=== PATIENT | female | born 1980 | race American Indian/Alaskan Native ===

== ENCOUNTER 2019-02-02 09:28 | Outpatient (CLI) | payer MEDICARE ==
[2019-02-02 10:10] LABS: Blood Urea Nitrogen 9 mg/dL (7-17)
--- NOTE | 2019-02-02 18:29 | Magnetic Resonance Report ---
PROCEDURE: MR PELVIS WO/W CON HISTORY: PELVIC PAIN, Fibroids, heavy bleeding and bloating. FINDINGS: MRI of the pelvis was performed using axial T2, axial T1, sagittal T2, axial and sagittal f at-saturated T1-weighted gradient echo images, and axial sagittal and coronal postcontrast T1-weighte d gradient echo images obtained following the intravenous administration of gadolinium-based contrast . The uterus overall measures 7.9 x 8.0 x 10.7 cm. There is a right anterior uterine body intramural an d submucosal leiomyoma, 6.1 x 6.2 x 6.4 cm. Following administration of intravenous contrast, this le iomyoma enhances avidly in the arterial phase relative to the remainder of the uterine myometrium, in dicating that has preferential arterial flow. In a more delayed postcontrast phase the leiomyoma enha nces to a degree similar to the remainder of the uterus. Immediately superior to this submucosal leiomyoma is a anterior uterine fundal intramural leiomyoma, sagittal T2-weighted image 16, axial T2-weighted image 17, approximately 0.8 cm. There is a dorsal uterine body leiomyoma, axial T2-weighted image 16, sagittal T2-weighted image 17, 1.9 x 1.3 x 1.8 cm. No other leiomyomas are seen. The endometrial stripe is mildly thickened at 1.5 cm. The cervix is within normal limits. Both ovaries are identified and contain normal small follicles. There is no adnexal mass. The urinary bladder is within normal limits. Urethra is within normal limits. IMPRESSION: Right anterior uterine body submucosal leiomyoma Normal ovaries This document is electronically signed by Barrera Botello MD., Feb 02 2019 06:27:03 PM ET
== END 2019-02-02 09:29 | disposition home or self-care (01) ==
LOC: MRI 09:28
PROVIDERS: ATTEND Radiology Vascular & Interventional Radiology
DX: D25.0 Submucous leiomyoma of uterus (principal); N93.9 Abnormal uterine and vaginal bleeding, unspecified; I10 Essential (primary) hypertension
CPT/HCPCS: 36415; 72197; 82565; 84520; A9577

== ENCOUNTER 2021-07-08 21:54 | Inpatient (IN) | payer MEDICARE ==
[2021-07-09] MEDS ORDERED: fentaNYL 100 MCG/2 ML INJ IV ONE (00:55)
[2021-07-09] MEDS ORDERED: NITROGLYCERIN 2% OINT 1 GM TP ONE (00:55)
[2021-07-09] MEDS ORDERED: ONDANSETRON 4 MG/2 ML INJ IV ONE (00:55)
[2021-07-09] MEDS ORDERED: ASPIRIN 325 MG TAB PO ONE (00:55)
--- NOTE | 2021-07-09 01:09 | Emergency Department Report ---
HPI - General Chief Complaint: Psych Time Seen by Provider: 07/09/21 00:39 - HPI HPI: Room 21 The patient is a 41-year-old female present with a chief complaint of chest pain. The patient states this evening while at rest she developed substernal chest pain feeling as though someone was standing on her chest. The patient states "I thought I was having a heart attack." Patient states the pain is been intermittent and associated with shortness of breath, diaphoresis and nausea without vomiting. The patient gets her chest pain score 3/10. The patient also exhibits delusions stating that "everything has been hacked into" and she states she feels "like I am being watched in the house." The patient states "cyber hacking going on in the house. "The patient also admits to suicidal ideation for 1 day and states her only attempt at harming herself was to put herself in a choke hold. Patient states she's never had a cardiac catheterization ED Past Medical Hx - Past Medical History Hx Hypertension: Yes Hx Diabetes: Yes (borderline- on Metformin) Hx Psychiatric Treatment: Yes (Anxiety) Additional medical history: fibroid - Surgical History Additional Surgical History: Myomectomy - Family History Family history: no significant - Social History Smoking Status: Never Smoker Substance Use Type: None (Denies illicit drug use), Alcohol (Occasional) - Medications Home Medications: Home Medications Medication Instructions Recorded Confirmed Last Taken Type Lisinopril [Zestril] 40 mg PO DAILY #30 tablet 08/08/18 Unknown Rx ED Review of Systems ROS: Stated complaint: CHEST PAIN Other details as noted in HPI Constitutional: diaphoresis Eyes: denies: eye pain ENT: denies: throat pain Respiratory: shortness of breath Cardiovascular: chest pain Endocrine: no symptoms reported Gastrointestinal: nausea. denies: vomiting Genitourinary: denies: dysuria Musculoskeletal: denies: back pain Neurological: denies: headache Physical Exam - Physical Exam Vital Signs: Vital Signs 07/08/21 23:35 Temperature 98.7 F Pulse Rate 104 H Respiratory 18 Rate Blood Pressure 126/86 [Left] O2 Sat by Pulse 98 Oximetry Physical Exam: GENERAL: The patient is well-developed well-nourished female lying on stretcher not appearing to be in acute distress. [] HEENT: Normocephalic. Atraumatic. Extraocular motions are intact. Patient has moist mucous membranes. NECK: Supple. Trachea midline CHEST/LUNGS: Clear to auscultation. There is no respiratory distress noted. HEART/CARDIOVASCULAR: Regular. There is no tachycardia. There is no gallop rub or murmur. ABDOMEN: Abdomen is soft, nontender. Patient has normal bowel sounds. There is no abdominal distention. SKIN: There is no rash. There is no edema. There is no diaphoresis. NEURO: The patient is awake, alert, and oriented. The patient is cooperative. The patient has no focal neurologic deficits. The patient has normal speech MUSCULOSKELETAL: There is no evidence of acute injury. ED Course Vital Signs 07/08/21 23:35 Temperature 98.7 F Pulse Rate 104 H Respiratory 18 Rate Blood Pressure 126/86 [Left] O2 Sat by Pulse 98 Oximetry ED Medical Decision Making - Lab Data Result diagrams: 07/09/21 01:22 07/09/21 01:22 Laboratory Tests 07/09/21 07/09/21 07/09/21 01:07 01:07 01:22 WBC 12.0 H RBC 4.56 Hgb 12.9 Hct 39.2 MCV 86 MCH 28 MCHC 33 RDW 14.3 Plt Count 369 Lymph % (Auto) 25.4 Mccreary % (Auto) 4.7 Eos % (Auto) 1.2 Baso % (Auto) 0.7 Lymph # (Auto) 3.0 Mccreary # (Auto) 0.6 Eos # (Auto) 0.1 Baso # (Auto) 0.1 Seg Neutrophils % 68.0 Seg Neutrophils # 8.2 H Sodium Potassium Chloride Carbon Dioxide Anion Gap BUN Creatinine Estimated GFR BUN/Creatinine Ratio Glucose Calcium Total Creatine Kinase CK-MB (CK-2) CK-MB (CK-2) Rel Index Troponin T HCG, Qual Urine Color Straw Urine Turbidity Clear Urine pH 6.0 Ur Specific [place] 1.008 Urine Protein <15 mg/dl Urine Glucose (UA) Neg Urine Ketones Neg Urine Blood Sm Urine Nitrite Neg Urine Bilirubin Neg Urine Urobilinogen < 2.0 Ur Leukocyte Esterase Neg Urine WBC (Auto) < 1.0 Urine RBC (Auto) 2.0 U Epithel Cells (Auto) 2.0 Salicylates Urine Opiates Screen Presumptive negative Urine Methadone Screen Presumptive negative Acetaminophen Ur Barbiturates Screen Presumptive negative Ur Phencyclidine Scrn Presumptive negative Ur Amphetamines Screen Presumptive negative U Benzodiazepines Scrn Presumptive negative Urine Cocaine Screen Presumptive negative U Marijuana (THC) Screen Presumptive negative Drugs of Abuse Note Disclamer Plasma/Serum Alcohol 07/09/21 07/09/21 07/09/21 01:22 01:22 01:22 WBC RBC Hgb Hct MCV MCH MCHC RDW Plt Count Lymph % (Auto) [place]re[place] % (Auto) Eos % (Auto) Baso % (Auto) Lymph # (Auto) Mccreary # (Auto) Eos # (Auto) Baso # (Auto) Seg Neutrophils % Seg Neutrophils # Sodium 138 Potassium 3.3 L Chloride 98.2 Carbon Dioxide 26 Anion Gap 17 BUN 8 Creatinine 0.9 Estimated GFR > 60 BUN/Creatinine Ratio 9 Glucose 99 Calcium 9.3 Total Creatine Kinase 529 H CK-MB (CK-2) 2.7 CK-MB (CK-2) Rel Index 0.5 Troponin T < 0.010 HCG, Qual Urine Color Urine Turbidity Urine pH Ur Specific [place] Urine Protein Urine Glucose (UA) Urine Ketones Urine Blood Urine Nitrite Urine Bilirubin Urine Urobilinogen Ur Leukocyte Esterase Urine WBC (Auto) Urine RBC (Auto) U Epithel Cells (Auto) Salicylates 1.5 L Urine Opiates Screen Urine Methadone Screen Acetaminophen 5.0 L Ur Barbiturates Screen Ur Phencyclidine Scrn Ur Amphetamines Screen U Benzodiazepines Scrn Urine Cocaine Screen U Marijuana (THC) Screen Drugs of Abuse Note Plasma/Serum Alcohol 07/09/21 07/09/21 01:22 01:22 WBC RBC Hgb Hct MCV MCH MCHC RDW Plt Count Lymph % (Auto) [place] % (Auto) Eos % (Auto) Baso % (Auto) Lymph # (Auto) [place] # (Auto) Eos # (Auto) Baso # (Auto) Seg Neutrophils % Seg Neutrophils # Sodium Potassium Chloride Carbon Dioxide Anion Gap BUN Creatinine Estimated GFR BUN/Creatinine Ratio Glucose Calcium Total Creatine Kinase CK-MB (CK-2) CK-MB (CK-2) Rel Index Troponin T HCG, Qual Negative Urine Color Urine Turbidity Urine pH Ur Specific [place] Urine Protein Urine Glucose (UA) Urine Ketones Urine Blood Urine Nitrite Urine Bilirubin Urine Urobilinogen Ur Leukocyte Esterase Urine WBC (Auto) Urine RBC (Auto) U Epithel Cells (Auto) Salicylates Urine Opiates Screen Urine Methadone Screen Acetaminophen Ur Barbiturates Screen Ur Phencyclidine Scrn Ur Amphetamines Screen U Benzodiazepines Scrn Urine Cocaine Screen U Marijuana (THC) Screen Drugs of Abuse Note Plasma/Serum Alcohol < 0.01 - EKG Data -: EKG Interpreted by Me EKG shows normal: sinus rhythm Rate: normal - Radiology Data Radiology results: report reviewed (Chest x-ray), image reviewed (Chest x-ray) interpreted by me: Chest x-ray-no definite focal infiltrates, no pneumothorax [facility] [address] [place] [address] XRay Report Signed Patient: ERIC RANGEL MR#: [id number] : 1980 Acct:[id number] Age/Sex: 41 / F ADM Date: 07/08/21 Loc: ED Attending Dr: Ordering Physician: TEENA LIRIANO MD Date of Service: 07/09/21 Procedure(s): XR chest 1V ap Accession Number(s): [id number] cc: TEENA LIRIANO MD Fluoro Time In Minutes: CHEST 1 VIEW 07/09/2021 1:08 AM INDICATION / CLINICAL INFORMATION: chest pain. COMPARISON: None available. FINDINGS: SUPPORT DEVICES: None. HEART / MEDIASTINUM: No significant abnormality. LUNGS / PLEURA: No significant pulmonary or pleural abnormality. No pneumothorax. ADDITIONAL FINDINGS: No significant additional findings. IMPRESSION: 1. No acute findings. Signer Name: Jorge Rosas MD Signed: 07/09/2021 2:28 AM Workstation Name: [id number] Transcribed By: TL Dictated By: Jorge Rosas MD Electronically Authenticated By: Jorge Rosas MD Signed Date/Time: 07/09/21227 DD/ 7 TD/TT: Print Cancel - Differential Diagnosis ACS, pericarditis, GERD, psychosis, Critical care attestation.: If time is entered above; I have spent that time in minutes in the direct care of this critically ill patient, excluding procedure time. ED Disposition Clinical Impression: Chest pain, Suicidal ideation, Delusional disorder Disposition: ADMITTED INPATIENT Is pt being admited?: Yes Does the pt Need Aspirin: Yes Condition: Fair Time of Disposition: 02:49 (Hospitalist called (Dr Edward)) Heart Score - HEART Score History: Moderately suspicious EKG: Non-specific Age: < 45 Risk factors: > 3 risk factors or hx of atherosclerotic disease Troponin: < normal limit HEART Score: 4 - EKG Read Time Time EKG Completed: 02:29 EKG Read Time: 02:46
[2021-07-09 01:21] LABS: Bilirubin,Urine NEG (Negative); Blood,Urine SM (Negative); Color,Urine Straw (Yellow); Protein,Urine <15 mg/dL mg/dL (Negative); Urobilinogen,Urine < 2.0 mg/dL (<2.0)
[2021-07-09 01:27] LABS: WBC,Urine < 1.0 /HPF (0.0-6.0)
[2021-07-09 01:29] LABS: Amphetamine Screen,Urine PRESUMPTIVE NEGATIVE; Benzodiazepines Screen,Urine PRESUMPTIVE NEGATIVE; Cannabinoid Screen,Urine PRESUMPTIVE NEGATIVE; Cocaine Screen,Urine PRESUMPTIVE NEGATIVE; Methadone Screen,Urine PRESUMPTIVE NEGATIVE; Opiate Screen,Urine PRESUMPTIVE NEGATIVE
[2021-07-09 01:48] LABS: Basophils # (Auto) 0.1 K/mm3 (0.0-0.1); Basophils % (Auto) 0.7 % (0.0-1.8); Eosinophils # (Auto) 0.1 K/mm3 (0.0-0.4); Eosinophils % (Auto) 1.2 % (0.0-4.3); Hematocrit 39.2 % (30.3-42.9); Hemoglobin 12.9 gm/dl (10.1-14.3); Lymphocytes % (Auto) 25.4 % (13.4-35.0); Mean Corpuscular HGB Conc 33 % (30-34); Mean Corpuscular Volume 86 fl (79-97); Monocytes # (Auto) 0.6 K/mm3 (0.0-0.8); Monocytes % (Auto) 4.7 % (0.0-7.3); Platelet Count 369 K/mm3 (140-440); Red Blood Count 4.56 M/mm3 (3.65-5.03); Red Cell Distribution Width 14.3 % (13.2-15.2)
[2021-07-09 01:59] LABS: Creatine Kinase MB 2.7 ng/mL (0.0-4.0)
[2021-07-09 02:00] LABS: BUN/Creatinine Ratio 9; Blood Urea Nitrogen 8 mg/dL (7-17); Calcium 9.3 mg/dL (8.4-10.2); Hemolysis Index 3
[2021-07-09] MEDS ORDERED: ONDANSETRON 4 MG/2 ML INJ IV PRN (02:14)
[2021-07-09] MEDS ORDERED: MORPHINE 2 MG/1 ML INJ IV PRN (02:14)
[2021-07-09] MEDS ORDERED: ACETAMINOPHEN 325 MG TAB PO PRN ×2 (02:14)
[2021-07-09] MEDS ORDERED: MAGNESIUM HYDROXIDE (MOM) ORAL LIQD UDC PO PRN (02:14)
[2021-07-09] MEDS ORDERED: NITROGLYCERIN 0.4 MG TAB SUBL SL PRN (02:14)
[2021-07-09] MEDS ORDERED: traMADol 50 MG TAB PO PRN (02:14)
[2021-07-09] MEDS ORDERED: MORPHINE 4 MG/1 ML INJ IV PRN ×2 (02:14)
[2021-07-09] MEDS ORDERED: POTASSIUM CHLORIDE ER 20 MEQ TAB PO ONE (02:15)
--- NOTE | 2021-07-09 02:32 | XRay Report ---
CHEST 1 VIEW 07/09/2021 1:08 AM INDICATION / CLINICAL INFORMATION: chest pain. COMPARISON: None available. FINDINGS: SUPPORT DEVICES: None. HEART / MEDIASTINUM: No significant abnormality. LUNGS / PLEURA: No significant pulmonary or pleural abnormality. No pneumothorax. ADDITIONAL FINDINGS: No significant additional findings. IMPRESSION: 1. No acute findings. Signer Name: Jorge Rosas MD Signed: 07/09/2021 2:28 AM Workstation Name: [id number]
--- NOTE | 2021-07-09 02:38 | History and Physical Report ---
History of Present Illness Date of examination: 07/09/21 Date of admission: 07/09/2021 Chief complaint: Chest Pain History of present illness: 41-year-old female with significant history of hypertension and diabetes mellitus presenting in the emergency room today complaining of chest pain. Chest pain is said to be substernal and felt like pressure. It has been in termittent and has been associated with shortness of breath, nausea and some diaphoresis. On a scale of 10 pain was about 3-4 over 10 in severity. Patient has a known history of mental illness and currently in the emergency room for medical clearance. She has been experiencing delusional ideas and feels that is because she is being watched in her house. She had expressed suicidal ideation about 24 hours ago. Patient denies any fever or chills, no recent travel and no sick contacts. Work-up in the emergency room today, labs, chest x-ray and EKG has been unremarkable. Past History Past Medical History: diabetes, hypertension, other (Anxiety) Past Surgical History: Other (Myomectomy) Social history: alcohol abuse (Occasional Alcohol) Family history: no significant family history Medications and Allergies Allergies Allergy/AdvReac Type Severity Reaction Status Date / Time No Known Allergies Allergy Verified 07/08/21 23:39 Home Medications Medication Instructions Recorded Confirmed Last Taken Type Lisinopril [Zestril] 40 mg PO DAILY #30 tablet 08/08/18 Unknown Rx Active Meds: Active Medications Acetaminophen (Acetaminophen 325 Mg Tab) 650 mg PO Q4H PRN PRN Reason: Pain MILD(1-3)/Fever >100.5/REZA Aspirin (Aspirin Ec 325 Mg Tab) 325 mg PO QDAY CLAUDINE Sodium Chloride (Nacl 0.9% 1000 Ml) 1,000 mls @ 75 mls/hr IV DIRECT CLAUDINE Magnesium Hydroxide (Magnesium Hydroxide (Mom) Oral Liqd Udc) 30 ml PO Q4H PRN PRN Reason: Constipation Morphine Sulfate (Morphine 2 Mg/1 Ml Inj) 2 mg IV Q4H PRN PRN Reason: Pain, Moderate (4-6) Morphine Sulfate (Morphine 4 Mg/1 Ml Inj) 4 mg IV Q4H PRN PRN Reason: Pain , Severe (7-10) Morphine Sulfate (Morphine 4 Mg/1 Ml Inj) 2 mg IV Q5MIN PRN PRN Reason: Chest Pain unrelieved by NTG Nitroglycerin (Nitroglycerin 0.4 Mg Tab Subl) 0.4 mg SL Q5M PRN PRN Reason: Chest Pain Ondansetron HCl (Ondansetron 4 Mg/2 Ml Inj) 4 mg IV Q8H PRN PRN Reason: Nausea And Vomiting Sodium Chloride (Sodium Chloride 0.9% 10 Ml Flush Syringe) 10 ml IV BID CLAUDINE Sodium Chloride (Sodium Chloride 0.9% 10 Ml Flush Syringe) 10 ml IV PRN PRN PRN Reason: LINE FLUSH Tramadol HCl (Tramadol 50 Mg Tab) 50 mg PO Q6H PRN PRN Reason: Pain, Moderate (4-6) Review of Systems Constitutional: no fever, no chills Ears, nose, mouth and throat: no nasal congestion, no sore throat Cardiovascular: chest pain, no palpitations Respiratory: no cough, no shortness of breath Genitourinary Female: no pelvic pain, no flank pain, no dysuria, no urgency, no hematuria Musculoskeletal: no neck pain, no low back pain Integumentary: no rash, no pruritis Neurological: no headaches, no confusion Psychiatric: no anxiety, no depression Endocrine: no polydipsia, no polyuria, no nocturia Exam - Constitutional Vitals: Temp Pulse Resp BP Pulse Ox 98.7 F 104 H 18 126/86 98 07/08/21 23:35 07/08/21 23:35 07/08/21 23:35 07/08/21 23:35 07/08/21 23:35 General appearance: Present: no acute distress, well-nourished - EENT Eyes: Present: PERRL, EOM intact. Absent: scleral icterus ENT: hearing intact, clear oral mucosa, dentition normal - Neck Neck: Present: supple, normal ROM - Respiratory Respiratory effort: normal Respiratory: bilateral: CTA - Cardiovascular Rhythm: regular Heart Sounds: Present: S1 & S2. Absent: systolic murmur, diastolic murmur - Extremities Extremities: no ischemia, pulses intact, pulses symmetrical, No edema, normal temperature, normal color, Full ROM Peripheral Pulses: within normal limits - Abdominal General gastrointestinal: Present: soft, non-tender, non-distended, normal bowel sounds. Absent: mass - Integumentary Integumentary: Present: clear, warm, dry. Absent: rash - Musculoskeletal Musculoskeletal: strength equal bilaterally - Psychiatric Psychiatric: appropriate mood/affect, intact judgment & insight, memory intact, cooperative - Neurologic Neurologic: CNII-XII intact, no focal deficits, moves all extremities HEART Score - HEART Score History: Moderately suspicious EKG: Non-specific Age: < 45 Risk factors: 1-2 risk factors Troponin: Troponin T < 0.010 ng/mL (0.00-0.029) 07/09/21 01:22 Troponin: < normal limit HEART Score: 3 Results - Labs CBC & Chem 7: 07/09/21 05:45 07/09/21 01:22 Labs: Abnormal lab results 07/09/21 07/09/21 07/09/21 Range/Units 01:22 01:22 01:22 WBC 12.0 H (4.5-11.0) K/mm3 Seg Neutrophils # 8.2 H (1.8-7.7) K/mm3 Potassium 3.3 L (3.6-5.0) mmol/L Total Creatine Kinase 529 H (30-135) units/L Salicylates 1.5 L (2.8-20.0) mg/dL Acetaminophen (10.0-30.0) ug/mL 07/09/21 Range/Units 01:22 WBC (4.5-11.0) K/mm3 Seg Neutrophils # (1.8-7.7) K/mm3 Potassium (3.6-5.0) mmol/L Total Creatine Kinase (30-135) units/L Salicylates (2.8-20.0) mg/dL Acetaminophen 5.0 L (10.0-30.0) ug/mL Assessment and Plan - Patient Problems (1) Chest pain Current Visit: Yes Status: Acute Plan to address problem: Patient admitted and placed on telemetry. We will check serial cardiac enzymes. Patient commenced on daily aspirin, sublingual nitroglycerin and IV morphine as needed for chest pain. (2) Delusional disorder Current Visit: Yes Status: Acute Plan to address problem: Consult placed to mental health for evaluation. (3) DVT prophylaxis Current Visit: Yes Status: Acute Plan to address problem: Patient placed on subcutaneous heparin. (4) Full code status Current Visit: Yes Status: Acute Plan to address problem: Patient is full code.
[2021-07-09 06:14] LABS: Red Blood Count 4.49 M/mm3 (3.65-5.03)
[2021-07-09 06:15] LABS: Basophils % (Auto) 0.5 % (0.0-1.8); Eosinophils # (Auto) 0.2 K/mm3 (0.0-0.4); Eosinophils % (Auto) 1.6 % (0.0-4.3); Hematocrit 38.5 % (30.3-42.9); Hemoglobin 13.1 gm/dl (10.1-14.3); Lymphocytes # (Auto) 2.7 K/mm3 (1.2-5.4); Lymphocytes % (Auto) 27.9 % (13.4-35.0); Mean Corpuscular HGB Conc 34 % (30-34); Mean Corpuscular Volume 86 fl (79-97); Monocytes # (Auto) 0.6 K/mm3 (0.0-0.8); Monocytes % (Auto) 5.7 % (0.0-7.3); Platelet Count 349 K/mm3 (140-440); Red Cell Distribution Width 14.4 % (13.2-15.2)
[2021-07-09 06:46] LABS: BUN/Creatinine Ratio 10; Blood Urea Nitrogen 8 mg/dL (7-17); Calcium 9.4 mg/dL (8.4-10.2); Hemolysis Index 1
[2021-07-09] MEDS ORDERED: REGADENOSON 0.4 MG/5 ML INJ IV ONE (07:58)
--- NOTE | 2021-07-09 09:09 | Consultation ---
History of Present Illness - Reason for Consult Consult date: 07/09/21 Reason for consult: delusional - Chief Complaint Chief complaint: Chest Pain - History of Present Psychiatric Illness The patient was seen today. She says she came to the ER for chest pain and anxiety. The patient denies a history of psych disorders or being on any medications. The patient is acutely psychotic. She says her family is being attached because they were cyber hacked. She says "I need someone to come and monitor the vazquez." The patient says she is seeing laser beams flashing and people walking and talking inside her home. She says "my whole family is in trouble." When asking the patient about suicidal thoughts, she replies "a little but not like I was last night." PAST PSYCHIATRIC HISTORY Diagnoses: Anxiety Suicide attempts or Self-harm behavior: Denies Prior psychiatric hospitalizations: Yes Substance Abuse history: Denies Previous psychiatric Denies Outpatient treatment: Denies PAST MEDICAL HISTORY: None reported Family Psychiatric History: None reported or documented SOCIAL HISTORY Marital Status: Single Living Arrangements: with family Employment Status: Unemployed Access to guns/weapons: Denies Education: History of Abuse: Denies Legal History: Denies REVIEW OF SYSTEMS Constitutional: Negative for weight loss ENT: Negative for stridor Respiratory: Negative for cough or hemoptysis All other systems reviewed and are negative MENTAL STATUS EXAMINATION General Appearance and Behavior: Age appropriate, good hygiene, wearing appropriate clothes, good eye contact, calm and cooperative Cooperation: Participating/engaged Psychomotor Behavior: Psychomotor normal Mood: okay Affect and affective range: Congruent to stated mood Thought Process: circumstantial, nonsensical Thought Content: delusions, hallucinations Speech: normal tone and pace Suicidal Ideation: Yes Homicidal Ideation: Denies Hallucinations: Yes Delusions: yes Impulse Control: Limited Insight and Judgment: Limited Memory: Limited Attention: divided Orientation: Alert and oriented Assessment and Plan (1) Delusional Disorder Treatment Plan 1013 Zoloft 25mg po daily Olanzapine 5mg po daily Vistaril 25mg po BID Sitter: per primary Medical: per primary Disposition: Recommend acute psychiatric inpatient treatment will follow. Thanks Case staffed with Dr. Tariq Medications and Allergies Allergies Allergy/AdvReac Type Severity Reaction Status Date / Time No Known Allergies Allergy Verified 07/08/21 23:39 Home Medications Medication Instructions Recorded Confirmed Last Taken Type Lisinopril [Zestril] 40 mg PO DAILY #30 tablet 08/08/18 07/09/21 07/08/21 Rx Glimepiride [Amaryl] 4 mg PO QAM 07/09/21 07/09/21 07/08/21 History hydroCHLOROthiazide [HCTZ] 25 mg PO QAM 07/09/21 07/09/21 07/08/21 History metFORMIN [Glucophage] 500 mg PO BID 07/09/21 07/09/21 07/08/21 History Active Meds: Active Medications Acetaminophen (Acetaminophen 325 Mg Tab) 650 mg PO Q4H PRN PRN Reason: Pain MILD(1-3)/Fever >100.5/REZA Aspirin (Aspirin Ec 325 Mg Tab) 325 mg PO QDAY CLAUDINE Sodium Chloride (Nacl 0.9% 1000 Ml) 1,000 mls @ 75 mls/hr IV DIRECT CLAUDINE Magnesium Hydroxide (Magnesium Hydroxide (Mom) Oral Liqd Udc) 30 ml PO Q4H PRN PRN Reason: Constipation Morphine Sulfate (Morphine 2 Mg/1 Ml Inj) 2 mg IV Q4H PRN PRN Reason: Pain, Moderate (4-6) Morphine Sulfate (Morphine 4 Mg/1 Ml Inj) 4 mg IV Q4H PRN PRN Reason: Pain , Severe (7-10) Morphine Sulfate (Morphine 4 Mg/1 Ml Inj) 2 mg IV Q5MIN PRN PRN Reason: Chest Pain unrelieved by NTG Nitroglycerin (Nitroglycerin 0.4 Mg Tab Subl) 0.4 mg SL Q5M PRN PRN Reason: Chest Pain Ondansetron HCl (Ondansetron 4 Mg/2 Ml Inj) 4 mg IV Q8H PRN PRN Reason: Nausea And Vomiting Sodium Chloride (Sodium Chloride 0.9% 10 Ml Flush Syringe) 10 ml IV BID CLAUDINE Sodium Chloride (Sodium Chloride 0.9% 10 Ml Flush Syringe) 10 ml IV PRN PRN PRN Reason: LINE FLUSH Tramadol HCl (Tramadol 50 Mg Tab) 50 mg PO Q6H PRN PRN Reason: Pain, Moderate (4-6) Mental Status Exam - Vital signs Last Vital Signs Temp 98.7 F 07/08/21 23:35 Pulse 92 H 07/09/21 06:43 Resp 16 07/09/21 06:43 BP 118/77 07/09/21 06:43 Pulse Ox 98 07/09/21 06:43 Results Result Diagrams: 07/09/21 05:45 07/09/21 05:45 Abnormal lab results 07/09/21 07/09/21 07/09/21 Range/Units 01:22 01:22 01:22 WBC 12.0 H (4.5-11.0) K/mm3 Seg Neutrophils # 8.2 H (1.8-7.7) K/mm3 Sodium (137-145) mmol/L Potassium 3.3 L (3.6-5.0) mmol/L Chloride (98-107) mmol/L Glucose (65-100) mg/dL Total Creatine Kinase 529 H (30-135) units/L Salicylates 1.5 L (2.8-20.0) mg/dL Acetaminophen (10.0-30.0) ug/mL 07/09/21 07/09/21 Range/Units 01:22 05:45 WBC (4.5-11.0) K/mm3 Seg Neutrophils # (1.8-7.7) K/mm3 Sodium 135 L (137-145) mmol/L Potassium (3.6-5.0) mmol/L Chloride 93.2 L (98-107) mmol/L Glucose 116 H (65-100) mg/dL Total Creatine Kinase (30-135) units/L Salicylates (2.8-20.0) mg/dL Acetaminophen 5.0 L (10.0-30.0) ug/mL All other labs normal.
--- NOTE | 2021-07-09 12:14 | Consultation ---
History of Present Illness Consult date: 07/09/21 Consult reason: chest pain History of present illness: This is a 41-year old F with a history of hypertension and diabetes, admitted with suicidal ideation and underlying psychosis. A cardiac consultation has been requested for chest pain evaluation. Chest pain is poorly characterized, intermittent, and is reproducible with palpation. Denies unusual shortness of breath and denies palpitations. No prior cardiac history. A chest x-ray showed n o acute findings and lab done shows normal troponin measurements. 12-lead ECG is sinus rhythm, no acute ST or T wave changes. Past History Past Medical History: diabetes, hypertension, other (Anxiety) Past Surgical History: Other (Myomectomy) Social history: alcohol abuse (Occasional Alcohol) Family history: no significant family history Medications and Allergies Allergies Allergy/AdvReac Type Severity Reaction Status Date / Time No Known Allergies Allergy Verified 07/08/21 23:39 Home Medications Medication Instructions Recorded Confirmed Last Taken Type Lisinopril [Zestril] 40 mg PO DAILY #30 tablet 08/08/18 07/09/21 07/08/21 Rx Glimepiride [Amaryl] 4 mg PO QAM 07/09/21 07/09/21 07/08/21 History hydroCHLOROthiazide [HCTZ] 25 mg PO QAM 07/09/21 07/09/21 07/08/21 History metFORMIN [Glucophage] 500 mg PO BID 07/09/21 07/09/21 07/08/21 History Active Meds: Active Medications Acetaminophen (Acetaminophen 325 Mg Tab) 650 mg PO Q4H PRN PRN Reason: Pain MILD(1-3)/Fever >100.5/REZA Aspirin (Aspirin Ec 325 Mg Tab) 325 mg PO QDAY CLAUDINE Hydroxyzine Pamoate (Hydroxyzine Pamoate 25 Mg Cap) 25 mg PO BID CLAUDINE Sodium Chloride (Nacl 0.9% 1000 Ml) 1,000 mls @ 75 mls/hr IV DIRECT CLAUDINE Magnesium Hydroxide (Magnesium Hydroxide (Mom) Oral Liqd Udc) 30 ml PO Q4H PRN PRN Reason: Constipation Morphine Sulfate (Morphine 2 Mg/1 Ml Inj) 2 mg IV Q4H PRN PRN Reason: Pain, Moderate (4-6) Morphine Sulfate (Morphine 4 Mg/1 Ml Inj) 4 mg IV Q4H PRN PRN Reason: Pain , Severe (7-10) Morphine Sulfate (Morphine 4 Mg/1 Ml Inj) 2 mg IV Q5MIN PRN PRN Reason: Chest Pain unrelieved by NTG Nitroglycerin (Nitroglycerin 0.4 Mg Tab Subl) 0.4 mg SL Q5M PRN PRN Reason: Chest Pain Olanzapine (Olanzapine 5 Mg Tab) 5 mg PO QDAY CLAUDINE Ondansetron HCl (Ondansetron 4 Mg/2 Ml Inj) 4 mg IV Q8H PRN PRN Reason: Nausea And Vomiting Sertraline HCl (Sertraline 25 Mg Tab) 25 mg PO QDAY CLAUDINE Sodium Chloride (Sodium Chloride 0.9% 10 Ml Flush Syringe) 10 ml IV BID CLAUDINE Sodium Chloride (Sodium Chloride 0.9% 10 Ml Flush Syringe) 10 ml IV PRN PRN PRN Reason: LINE FLUSH Tramadol HCl (Tramadol 50 Mg Tab) 50 mg PO Q6H PRN PRN Reason: Pain, Moderate (4-6) Review of Systems Cardiovascular: chest pain, no palpitations, no edema, no syncope, no shortness of breath Physical Examination Vital Signs Temp Pulse Resp BP Pulse Ox 98.7 F 104 H 18 126/86 98 07/08/21 23:35 07/08/21 23:35 07/08/21 23:35 07/08/21 23:35 07/08/21 23:35 General appearance: no acute distress, other (tearful) HEENT: Positive: PERRL Neck: Positive: trachea midline Cardiac: Positive: Reg Rate and Rhythm Lungs: Positive: Decreased Breath Sounds Neuro: Positive: Grossly Intact Extremities: Absent: edema Results 07/09/21 05:45 07/09/21 05:45 Cardiac Enzymes 07/09/21 Range/Units 01:22 CK-MB (CK-2) 2.7 (0.0-4.0) ng/mL CBC 07/09/21 07/09/21 Range/Units 01:22 05:45 WBC 12.0 H 9.7 (4.5-11.0) K/mm3 RBC 4.56 4.49 (3.65-5.03) M/mm3 Hgb 12.9 13.1 (10.1-14.3) gm/dl Hct 39.2 38.5 (30.3-42.9) % Plt Count 369 349 (140-440) K/mm3 Lymph # (Auto) 3.0 2.7 (1.2-5.4) K/mm3 [place] # (Auto) 0.6 0.6 (0.0-0.8) K/mm3 Eos # (Auto) 0.1 0.2 (0.0-0.4) K/mm3 Baso # (Auto) 0.1 0.0 (0.0-0.1) K/mm3 Comprehensive Metabolic Panel 07/09/21 07/09/21 Range/Units 01:22 05:45 Sodium 138 135 L (137-145) mmol/L Potassium 3.3 L 5.0 D (3.6-5.0) mmol/L Chloride 98.2 93.2 L (98-107) mmol/L Carbon Dioxide 26 28 (22-30) mmol/L BUN 8 8 (7-17) mg/dL Creatinine 0.9 0.8 (0.6-1.2) mg/dL Glucose 99 116 H (65-100) mg/dL Calcium 9.3 9.4 (8.4-10.2) mg/dL Assessment and Plan - Patient Problems (1) Chest pain Current Visit: Yes Status: Acute Plan to address problem: Patient is admitted with atypical chest pain A stress thallium test and echo ordered by the hospitalist, was cancelled due to active psychosis. Recommend outpatient noninvasive ischemic workup once underlying psychosis is stable.
[2021-07-09] MEDS: hydrOXYzine PAMOATE 25 MG CAP PO SCH ×2 (14:21→23:47)
[2021-07-09] MEDS: SERTRALINE 25 MG TAB PO SCH (14:21)
--- NOTE | 2021-07-09 15:34 | Event Note ---
Date: 07/09/21 Patient evaluated in the ED after admission. Denies current suicidal ideation, but still has paranoid thoughts of " someone being in my house and my family is in danger". Cardiology and psychiatry evaluated the patient. She is acutely psychotic and therefore 1013 hold was placed. Plan for echocardiogram. Once patient is medically stable likely to be discharged to inpatient psychiatric care.
[2021-07-09] MEDS: LISINOPRIL 40 MG TAB PO SCH (18:48)
[2021-07-09] MEDS: SODIUM CHLORIDE 0.9% 1000 ML 1,000 ML IV SCH (23:46)
[2021-07-10 05:20] LABS: Basophils # (Auto) 0.1 K/mm3 (0.0-0.1); Basophils % (Auto) 0.6 % (0.0-1.8); Eosinophils # (Auto) 0.1 K/mm3 (0.0-0.4); Eosinophils % (Auto) 1.5 % (0.0-4.3); Hematocrit 37.8 % (30.3-42.9); Hemoglobin 12.5 gm/dl (10.1-14.3); Lymphocytes # (Auto) 1.8 K/mm3 (1.2-5.4); Lymphocytes % (Auto) 19.9 % (13.4-35.0); Mean Corpuscular HGB Conc 33 % (30-34); Mean Corpuscular Volume 86 fl (79-97); Monocytes # (Auto) 0.5 K/mm3 (0.0-0.8); Monocytes % (Auto) 5.1 % (0.0-7.3); Platelet Count 348 K/mm3 (140-440)
[2021-07-10 05:33] LABS: INR 0.96 (0.87-1.13)
[2021-07-10 05:43] LABS: Blood Urea Nitrogen 8 mg/dL (7-17); Calcium 8.8 mg/dL (8.4-10.2); Chol/HDL Ratio 3.46 %; HDL Cholesterol 39 mg/dL (40-59); Hemolysis Index 1; LDL Cholesterol,Direct 85 mg/dL (50-130)
[2021-07-10 05:46] LABS: BUN/Creatinine Ratio 11
--- NOTE | 2021-07-10 08:01 | Progress Note ---
Assessment and Plan Assessment and plan: #Atypical chest pain -Resolved -Echocardiogram 07/10: LVEF 55 to 65% with concentric LVH #Hypertension -controlled, continue lisinopril #Diabetes -euglycemic, will not treat acutely #Delusional disorder -continue 1013 status -management per Psychiatry -Patient medically stable for acute psychiatric inpatient treatment from Medicine stand point. Disposition Plan: Possibly inpatient psychiatry Total Time Spent with Patient (Minutes): 20 minutes History Interval history: No acute events overnight. Patient returned from echocardiogram. Patient reports feeling well, no longer having chest pain. Still believes that her family is in danger. Hospitalist Physical - Physical exam Narrative exam: GENERAL: Well-developed well-nourished. Sitting in bed eating breakfast, no acute distress. CHEST/LUNGS: CTAB on room air HEART/CARDIOVASCULAR: RRR. No murmur, rubs or gallops appreciated. ABDOMEN: +BS. NT/ND. NEURO: No focal motor deficit. Follows all commands. MUSCULOSKELETAL: No joint effusion EXTREMITIES: No cyanosis, clubbing or edema. PSYCH: Paranoid thoughts. No SI/HI. - Constitutional Vitals: Temp Pulse Resp BP Pulse Ox 98.0 F 90 18 107/74 99 07/10/21 07:28 07/10/21 07:28 07/10/21 07:28 07/10/21 07:28 07/10/21 07:28 General appearance: Present: no acute distress, other (tearful) HEART Score - HEART Score EKG: Non-specific Age: < 45 Risk factors: 1-2 risk factors Troponin: Troponin T < 0.010 ng/mL (0.00-0.029) 07/09/21 08:27 Troponin: < normal limit Results - Labs CBC & Chem 7: 07/10/21 05:02 07/10/21 05:02 Labs: Laboratory Last Values WBC 8.9 K/mm3 (4.5-11.0) 07/10/21 05:02 RBC 4.40 M/mm3 (3.65-5.03) 07/10/21 05:02 Hgb 12.5 gm/dl (10.1-14.3) 07/10/21 05:02 Hct 37.8 % (30.3-42.9) 07/10/21 05:02 MCV 86 fl (79-97) 07/10/21 05:02 MCH 28 pg (28-32) 07/10/21 05:02 MCHC 33 % (30-34) 07/10/21 05:02 RDW 14.0 % (13.2-15.2) 07/10/21 05:02 Plt Count 348 K/mm3 (140-440) 07/10/21 05:02 Lymph % (Auto) 19.9 % (13.4-35.0) 07/10/21 05:02 [place] % (Auto) 5.1 % (0.0-7.3) 07/10/21 05:02 Eos % (Auto) 1.5 % (0.0-4.3) 07/10/21 05:02 Baso % (Auto) 0.6 % (0.0-1.8) 07/10/21 05:02 Lymph # (Auto) 1.8 K/mm3 (1.2-5.4) 07/10/21 05:02 [place] # (Auto) 0.5 K/mm3 (0.0-0.8) 07/10/21 05:02 Eos # (Auto) 0.1 K/mm3 (0.0-0.4) 07/10/21 05:02 Baso # (Auto) 0.1 K/mm3 (0.0-0.1) 07/10/21 05:02 Seg Neutrophils % 72.9 % (40.0-70.0) H 07/10/21 05:02 Seg Neutrophils # 6.5 K/mm3 (1.8-7.7) 07/10/21 05:02 PT 13.9 Sec. (12.2-14.9) 07/10/21 05:02 INR 0.96 (0.87-1.13) 07/10/21 05:02 Sodium 138 mmol/L (137-145) 07/10/21 05:02 Potassium 3.6 mmol/L (3.6-5.0) D 07/10/21 05:02 Chloride 101.5 mmol/L (98-107) 07/10/21 05:02 Carbon Dioxide 25 mmol/L (22-30) 07/10/21 05:02 Anion Gap 15 mmol/L 07/10/21 05:02 BUN 8 mg/dL (7-17) 07/10/21 05:02 Creatinine 0.7 mg/dL (0.6-1.2) 07/10/21 05:02 Estimated GFR > 60 ml/min 07/10/21 05:02 BUN/Creatinine Ratio 11 % 07/10/21 05:02 Glucose 128 mg/dL (65-100) H 07/10/21 05:02 Calcium 8.8 mg/dL (8.4-10.2) 07/10/21 05:02 Total Creatine Kinase 529 units/L (30-135) H 07/09/21 01:22 CK-MB (CK-2) 2.7 ng/mL (0.0-4.0) 07/09/21 01:22 CK-MB (CK-2) Rel Index 0.5 (0-4) 07/09/21 01:22 Troponin T < 0.010 ng/mL (0.00-0.029) 07/09/21 08:27 Triglycerides 70 mg/dL (2-149) 07/10/21 05:02 Cholesterol 135 mg/dL (50-199) 07/10/21 05:02 LDL Cholesterol Direct 85 mg/dL (50-130) 07/10/21 05:02 HDL Cholesterol 39 mg/dL (40-59) L 07/10/21 05:02 Cholesterol/HDL Ratio 3.46 % 07/10/21 05:02 HCG, Qual Negative (Negative) 07/09/21 01:22 Urine Color Straw (Yellow) 07/09/21 01:07 Urine Turbidity Clear (Clear) 07/09/21 01:07 Urine pH 6.0 (5.0-7.0) 07/09/21 01:07 Ur Specific [place] 1.008 (1.003-1.030) 07/09/21 01:07 Urine Protein <15 mg/dl mg/dL (Negative) 07/09/21 01:07 Urine Glucose (UA) Neg mg/dL (Negative) 07/09/21 01:07 Urine Ketones Neg mg/dL (Negative) 07/09/21 01:07 Urine Blood Sm (Negative) 07/09/21 01:07 Urine Nitrite Neg (Negative) 07/09/21 01:07 Urine Bilirubin Neg (Negative) 07/09/21 01:07 Urine Urobilinogen < 2.0 mg/dL (<2.0) 07/09/21 01:07 Ur Leukocyte Esterase Neg (Negative) 07/09/21 01:07 Urine WBC (Auto) < 1.0 /HPF (0.0-6.0) 07/09/21 01:07 Urine RBC (Auto) 2.0 /HPF (0.0-6.0) 07/09/21 01:07 U Epithel Cells (Auto) 2.0 /HPF (0-13.0) 07/09/21 01:07 Salicylates 1.5 mg/dL (2.8-20.0) L 07/09/21 01:22 Urine Opiates Screen Presumptive negative 07/09/21 01:07 Urine Methadone Screen Presumptive negative 07/09/21 01:07 Acetaminophen 5.0 ug/mL (10.0-30.0) L 07/09/21 01:22 Ur Barbiturates Screen Presumptive negative 07/09/21 01:07 Ur Phencyclidine Scrn Presumptive negative 07/09/21 01:07 Ur Amphetamines Screen Presumptive negative 07/09/21 01:07 U Benzodiazepines Scrn Presumptive negative 07/09/21 01:07 Urine Cocaine Screen Presumptive negative 07/09/21 01:07 U Marijuana (THC) Screen Presumptive negative 07/09/21 01:07 Drugs of Abuse Note Disclamer 07/09/21 01:07 Plasma/Serum Alcohol < 0.01 % (0-0.07) 07/09/21 01:22 Cyr/IV: Voiding Method Toilet Active Medications - Current Medications Current Medications: Generic Name Dose Route Start Last Admin Trade Name Freq PRN Reason Stop Dose Admin Acetaminophen 650 mg 07/09/21 02:14 Acetaminophen 325 Mg Tab PO Q4H PRN Pain MILD(1-3)/Fever >100.5/REZA Aspirin 325 mg 07/10/21 10:00 Aspirin Ec 325 Mg Tab PO QDAY CLAUDINE Hydroxyzine Pamoate 25 mg 07/09/21 10:00 07/09/21 23:47 Hydroxyzine Pamoate 25 Mg Cap PO 25 mg BID CLAUDINE Administration Sodium Chloride 1,000 mls @ 75 mls/hr 07/09/21 02:15 07/09/21 23:46 Nacl 0.9% 1000 Ml IV 75 mls/hr DIRECT CLAUDINE Administration Lisinopril 40 mg 07/09/21 18:00 07/09/21 18:48 Lisinopril 40 Mg Tab PO 40 mg QDAY CLAUDINE Administration Magnesium Hydroxide 30 ml 07/09/21 02:14 Magnesium Hydroxide (Mom) Oral Liqd Udc PO Q4H PRN Constipation Morphine Sulfate 2 mg 07/09/21 02:14 Morphine 2 Mg/1 Ml Inj IV Q4H PRN Pain, Moderate (4-6) Morphine Sulfate 4 mg 07/09/21 02:14 Morphine 4 Mg/1 Ml Inj IV Q4H PRN Pain , Severe (7-10) Morphine Sulfate 2 mg 07/09/21 02:14 Morphine 4 Mg/1 Ml Inj IV Q5MIN PRN Chest Pain unrelieved by NTG Nitroglycerin 0.4 mg 07/09/21 02:14 Nitroglycerin 0.4 Mg Tab Subl SL Q5M PRN Chest Pain Olanzapine 5 mg 07/09/21 10:00 07/09/21 14:21 Olanzapine 5 Mg Tab PO 5 mg QDAY CLAUDINE Administration Ondansetron HCl 4 mg 07/09/21 02:14 Ondansetron 4 Mg/2 Ml Inj IV Q8H PRN Nausea And Vomiting Sertraline HCl 25 mg 07/09/21 10:00 07/09/21 14:21 Sertraline 25 Mg Tab PO 25 mg QDAY CLAUDINE Administration Sodium Chloride 10 ml 07/09/21 10:00 07/09/21 23:47 Sodium Chloride 0.9% 10 Ml Flush Syringe IV 10 ml BID CLAUDINE Administration Sodium Chloride 10 ml 07/09/21 02:14 Sodium Chloride 0.9% 10 Ml Flush Syringe IV PRN PRN LINE FLUSH Tramadol HCl 50 mg 07/09/21 02:14 Tramadol 50 Mg Tab PO Q6H PRN Pain, Moderate (4-6)
[2021-07-10] MEDS: hydrOXYzine PAMOATE 25 MG CAP PO SCH ×2 (10:47→22:44)
[2021-07-10] MEDS: ASPIRIN EC 325 MG TAB PO SCH (10:48)
[2021-07-10] MEDS: LISINOPRIL 40 MG TAB PO SCH (10:48)
[2021-07-10] MEDS: SERTRALINE 25 MG TAB PO SCH (10:48)
--- NOTE | 2021-07-10 12:04 | Progress Note ---
Subjective - Reason for Consult Consult date: 07/10/21 Reason for consult: psychosis - Chief Complaint Chief complaint: The patient was seen today. She is still delusional and paranoid. She says she's afraid for herself and her family. She says "my nerves are bad and me and my family are in trouble." The patient says she's afraid to go home because she's afraid of what might happen. She denies SI/HI REVIEW OF SYSTEMS Constitutional: Negative for weight loss ENT: Negative for stridor Respiratory: Negative for cough or hemoptysis All other systems reviewed and are negative MENTAL STATUS EXAMINATION General Appearance and Behavior: Age appropriate, good hygiene, wearing appropriate clothes, good eye contact, calm and cooperative Cooperation: Participating/engaged Psychomotor Behavior: Psychomotor normal Mood: okay Affect and affective range: Congruent to stated mood Thought Process: circumstantial, nonsensical Thought Content: delusions, hallucinations Speech: normal tone and pace Suicidal Ideation: Denies Homicidal Ideation: Denies Hallucinations: Yes Delusions: yes Impulse Control: Limited Insight and Judgment: Limited Memory: Limited Attention: divided Orientation: Alert and oriented Assessment and Plan (1) Delusional Disorder Treatment Plan 1013 Increase Olanzapine 10mg po daily Continue Vistaril 25mg po BID Sitter: per primary Medical: per primary Disposition: Recommend acute psychiatric inpatient treatment will follow. Thanks Case staffed with Dr. Tariq Mental Status Exam - Vital signs Last Vital Signs Temp 98.0 F 07/10/21 07:28 Pulse 90 07/10/21 07:28 Resp 18 07/10/21 07:28 BP 107/74 07/10/21 07:28 Pulse Ox 99 07/10/21 07:28
--- NOTE | 2021-07-10 12:10 | Progress Note ---
Assessment and Plan - Patient Problems (1) Suicidal ideation Current Visit: Yes Status: Acute Plan to address problem: Patient admitted with suicidal ideation for mental health assessment and management. There are no cardiac complaints, no acute cardiac issues, patient can follow with us in the outpatients, will follow on a as needed basis Subjective Date of service: 07/10/21 Interval history: Patient is comfortable, no cardiac complaints. He is under observation for her mental health complaints and suicidal ideation. Echocardiogram done on this presentation shows normal left ventricular systolic function with ejection fraction 55 to 60%. Objective Vital Signs Temp Pulse Resp BP BP Pulse Ox 07/10/21 07:28 98.0 F 90 18 107/74 99 07/10/21 05:04 98.0 F 93 H 18 105/66 99 07/09/21 23:50 96 07/09/21 23:09 98.8 F 104 H 16 145/94 96 07/09/21 20:43 162/117 100 07/09/21 20:41 98.0 F 94 H 20 129/93 100 07/09/21 20:00 20 98 07/09/21 16:45 98 F 105 H 16 179/135 99 07/09/21 16:15 162/117 07/09/21 16:04 162/117 07/09/21 15:49 154/111 07/09/21 15:19 165/110 07/09/21 15:04 160/110 07/09/21 14:49 157/114 07/09/21 14:34 161/110 07/09/21 14:19 163/111 07/09/21 14:04 171/118 07/09/21 13:49 156/105 07/09/21 13:34 144/102 07/09/21 13:19 148/96 - Physical Examination General: No Apparent Distress HEENT: Positive: PERRL Neck: Positive: trachea midline Cardiac: Positive: Reg Rate and Rhythm Lungs: Positive: clear to auscultation Neuro: Positive: Grossly Intact Abdomen: Positive: Soft Skin: Positive: Clear Extremities: Absent: edema - Labs and Meds Coagulation 07/10/21 Range/Units 05:02 PT 13.9 (12.2-14.9) Sec. INR 0.96 (0.87-1.13) Lipids 07/10/21 Range/Units 05:02 Triglycerides 70 (2-149) mg/dL Cholesterol 135 (50-199) mg/dL HDL Cholesterol 39 L (40-59) mg/dL Cholesterol/HDL Ratio 3.46 % CBC 07/10/21 Range/Units 05:02 WBC 8.9 (4.5-11.0) K/mm3 RBC 4.40 (3.65-5.03) M/mm3 Hgb 12.5 (10.1-14.3) gm/dl Hct 37.8 (30.3-42.9) % Plt Count 348 (140-440) K/mm3 Lymph # (Auto) 1.8 (1.2-5.4) K/mm3 [place] # (Auto) 0.5 (0.0-0.8) K/mm3 Eos # (Auto) 0.1 (0.0-0.4) K/mm3 Baso # (Auto) 0.1 (0.0-0.1) K/mm3 Comprehensive Metabolic Panel 07/10/21 Range/Units 05:02 Sodium 138 (137-145) mmol/L Potassium 3.6 D (3.6-5.0) mmol/L Chloride 101.5 (98-107) mmol/L Carbon Dioxide 25 (22-30) mmol/L BUN 8 (7-17) mg/dL Creatinine 0.7 (0.6-1.2) mg/dL Glucose 128 H (65-100) mg/dL Calcium 8.8 (8.4-10.2) mg/dL
[2021-07-11] MEDS: SERTRALINE 25 MG TAB PO SCH (10:55)
[2021-07-11] MEDS: ASPIRIN EC 325 MG TAB PO SCH (10:55)
[2021-07-11] MEDS: hydrOXYzine PAMOATE 25 MG CAP PO SCH ×2 (10:55→21:32)
[2021-07-11] MEDS: LISINOPRIL 40 MG TAB PO SCH (10:55)
[2021-07-11] MEDS ORDERED: FLU VACC QUAD 2021-22(6MOS UP)/PF 60 MCG/0.5 ML SYRINGE IM ONE (12:00)
--- NOTE | 2021-07-11 15:12 | Progress Note ---
Assessment and Plan Disposition Plan: Home versus inpatient psych Total Time Spent with Patient (Minutes): 20 minutes History Interval history: No acute events overnight. Patient without complaints at this time. Hospitalist Physical - Physical exam Narrative exam: GENERAL: Well-developed well-nourished. Sitting in bed eating breakfast, no acute distress. CHEST/LUNGS: CTAB on room air HEART/CARDIOVASCULAR: RRR. No murmur, rubs or gallops appreciated. ABDOMEN: +BS. NT/ND. EXTREMITIES: No cyanosis, clubbing or edema. PSYCH: Paranoid thoughts. No SI/HI. - Constitutional Vitals: Temp Pulse Resp BP Pulse Ox 98.9 F 111 H 18 152/97 96 07/11/21 12:12 07/11/21 12:12 07/11/21 12:12 07/11/21 12:12 07/11/21 12:12 General appearance: Present: no acute distress, other (tearful) HEART Score - HEART Score EKG: Non-specific Age: < 45 Risk factors: 1-2 risk factors Troponin: Troponin T < 0.010 ng/mL (0.00-0.029) 07/09/21 08:27 Troponin: < normal limit Results - Labs CBC & Chem 7: 07/10/21 05:02 07/10/21 05:02 Labs: Laboratory Last Values WBC 8.9 K/mm3 (4.5-11.0) 07/10/21 05:02 RBC 4.40 M/mm3 (3.65-5.03) 07/10/21 05:02 Hgb 12.5 gm/dl (10.1-14.3) 07/10/21 05:02 Hct 37.8 % (30.3-42.9) 07/10/21 05:02 MCV 86 fl (79-97) 07/10/21 05:02 MCH 28 pg (28-32) 07/10/21 05:02 MCHC 33 % (30-34) 07/10/21 05:02 RDW 14.0 % (13.2-15.2) 07/10/21 05:02 Plt Count 348 K/mm3 (140-440) 07/10/21 05:02 Lymph % (Auto) 19.9 % (13.4-35.0) 07/10/21 05:02 [place] % (Auto) 5.1 % (0.0-7.3) 07/10/21 05:02 Eos % (Auto) 1.5 % (0.0-4.3) 07/10/21 05:02 Baso % (Auto) 0.6 % (0.0-1.8) 07/10/21 05:02 Lymph # (Auto) 1.8 K/mm3 (1.2-5.4) 07/10/21 05:02 [place] # (Auto) 0.5 K/mm3 (0.0-0.8) 07/10/21 05:02 Eos # (Auto) 0.1 K/mm3 (0.0-0.4) 07/10/21 05:02 Baso # (Auto) 0.1 K/mm3 (0.0-0.1) 07/10/21 05:02 Seg Neutrophils % 72.9 % (40.0-70.0) H 07/10/21 05:02 Seg Neutrophils # 6.5 K/mm3 (1.8-7.7) 07/10/21 05:02 PT 13.9 Sec. (12.2-14.9) 07/10/21 05:02 INR 0.96 (0.87-1.13) 07/10/21 05:02 Sodium 138 mmol/L (137-145) 07/10/21 05:02 Potassium 3.6 mmol/L (3.6-5.0) D 07/10/21 05:02 Chloride 101.5 mmol/L (98-107) 07/10/21 05:02 Carbon Dioxide 25 mmol/L (22-30) 07/10/21 05:02 Anion Gap 15 mmol/L 07/10/21 05:02 BUN 8 mg/dL (7-17) 07/10/21 05:02 Creatinine 0.7 mg/dL (0.6-1.2) 07/10/21 05:02 Estimated GFR > 60 ml/min 07/10/21 05:02 BUN/Creatinine Ratio 11 % 07/10/21 05:02 Glucose 128 mg/dL (65-100) H 07/10/21 05:02 POC Glucose 123 mg/dL (70-105) H 07/11/21 11:18 Calcium 8.8 mg/dL (8.4-10.2) 07/10/21 05:02 Total Creatine Kinase 529 units/L (30-135) H 07/09/21 01:22 CK-MB (CK-2) 2.7 ng/mL (0.0-4.0) 07/09/21 01:22 CK-MB (CK-2) Rel Index 0.5 (0-4) 07/09/21 01:22 Troponin T < 0.010 ng/mL (0.00-0.029) 07/09/21 08:27 Triglycerides 70 mg/dL (2-149) 07/10/21 05:02 Cholesterol 135 mg/dL (50-199) 07/10/21 05:02 LDL Cholesterol Direct 85 mg/dL (50-130) 07/10/21 05:02 HDL Cholesterol 39 mg/dL (40-59) L 07/10/21 05:02 Cholesterol/HDL Ratio 3.46 % 07/10/21 05:02 HCG, Qual Negative (Negative) 07/09/21 01:22 Urine Color Straw (Yellow) 07/09/21 01:07 Urine Turbidity Clear (Clear) 07/09/21 01:07 Urine pH 6.0 (5.0-7.0) 07/09/21 01:07 Ur Specific [place] 1.008 (1.003-1.030) 07/09/21 01:07 Urine Protein <15 mg/dl mg/dL (Negative) 07/09/21 01:07 Urine Glucose (UA) Neg mg/dL (Negative) 07/09/21 01:07 Urine Ketones Neg mg/dL (Negative) 07/09/21 01:07 Urine Blood Sm (Negative) 07/09/21 01:07 Urine Nitrite Neg (Negative) 07/09/21 01:07 Urine Bilirubin Neg (Negative) 07/09/21 01:07 Urine Urobilinogen < 2.0 mg/dL (<2.0) 07/09/21 01:07 Ur Leukocyte Esterase Neg (Negative) 07/09/21 01:07 Urine WBC (Auto) < 1.0 /HPF (0.0-6.0) 07/09/21 01:07 Urine RBC (Auto) 2.0 /HPF (0.0-6.0) 07/09/21 01:07 U Epithel Cells (Auto) 2.0 /HPF (0-13.0) 07/09/21 01:07 Salicylates 1.5 mg/dL (2.8-20.0) L 07/09/21 01:22 Urine Opiates Screen Presumptive negative 07/09/21 01:07 Urine Methadone Screen Presumptive negative 07/09/21 01:07 Acetaminophen 5.0 ug/mL (10.0-30.0) L 07/09/21 01:22 Ur Barbiturates Screen Presumptive negative 07/09/21 01:07 Ur Phencyclidine Scrn Presumptive negative 07/09/21 01:07 Ur Amphetamines Screen Presumptive negative 07/09/21 01:07 U Benzodiazepines Scrn Presumptive negative 07/09/21 01:07 Urine Cocaine Screen Presumptive negative 07/09/21 01:07 U Marijuana (THC) Screen Presumptive negative 07/09/21 01:07 Drugs of Abuse Note Disclamer 07/09/21 01:07 Plasma/Serum Alcohol < 0.01 % (0-0.07) 07/09/21 01:22 Cyr/IV: Voiding Method Toilet Active Medications - Current Medications Current Medications: Generic Name Dose Route Start Last Admin Trade Name Freq PRN Reason Stop Dose Admin Acetaminophen 650 mg 07/09/21 02:14 Acetaminophen 325 Mg Tab PO Q4H PRN Pain MILD(1-3)/Fever >100.5/REZA Aspirin 325 mg 07/10/21 10:00 07/11/21 10:55 Aspirin Ec 325 Mg Tab PO 325 mg QDAY CLAUDINE Administration Hydroxyzine Pamoate 25 mg 07/09/21 10:00 07/11/21 10:55 Hydroxyzine Pamoate 25 Mg Cap PO 25 mg BID CLAUDINE Administration Sodium Chloride 1,000 mls @ 75 mls/hr 07/09/21 02:15 07/09/21 23:46 Nacl 0.9% 1000 Ml IV 75 mls/hr DIRECT CLAUDINE Administration Lisinopril 40 mg 07/09/21 18:00 07/11/21 10:55 Lisinopril 40 Mg Tab PO 40 mg QDAY CLAUDINE Administration Magnesium Hydroxide 30 ml 07/09/21 02:14 Magnesium Hydroxide (Mom) Oral Liqd Udc PO Q4H PRN Constipation Morphine Sulfate 2 mg 07/09/21 02:14 Morphine 2 Mg/1 Ml Inj IV Q4H PRN Pain, Moderate (4-6) Morphine Sulfate 4 mg 07/09/21 02:14 Morphine 4 Mg/1 Ml Inj IV Q4H PRN Pain , Severe (7-10) Morphine Sulfate 2 mg 07/09/21 02:14 Morphine 4 Mg/1 Ml Inj IV Q5MIN PRN Chest Pain unrelieved by NTG Nitroglycerin 0.4 mg 07/09/21 02:14 Nitroglycerin 0.4 Mg Tab Subl SL Q5M PRN Chest Pain Olanzapine 10 mg 07/11/21 10:00 07/11/21 10:55 Olanzapine 10 Mg Tab PO 10 mg QDAY CLAUDINE Administration Ondansetron HCl 4 mg 07/09/21 02:14 Ondansetron 4 Mg/2 Ml Inj IV Q8H PRN Nausea And Vomiting Sertraline HCl 25 mg 07/09/21 10:00 07/11/21 10:55 Sertraline 25 Mg Tab PO 25 mg QDAY CLAUDINE Administration Sodium Chloride 10 ml 07/09/21 10:00 07/11/21 10:55 Sodium Chloride 0.9% 10 Ml Flush Syringe IV Not Given BID CLAUDINE Sodium Chloride 10 ml 07/09/21 02:14 Sodium Chloride 0.9% 10 Ml Flush Syringe IV PRN PRN LINE FLUSH Tramadol HCl 50 mg 07/09/21 02:14 Tramadol 50 Mg Tab PO Q6H PRN Pain, Moderate (4-6)
[2021-07-11] MEDS: SODIUM CHLORIDE 0.9% 1000 ML 1,000 ML IV SCH (19:32)
--- NOTE | 2021-07-12 08:25 | Progress Note ---
Assessment and Plan Assessment and plan: #Atypical chest pain -Resolved -Echocardiogram 07/10: LVEF 55 to 65% with concentric LVH #Hypertension -controlled, continue lisinopril #Diabetes -euglycemic, will not treat acutely #Delusional disorder -discontinue 1013 status -management per Psychiatry -Patient medically stable for acute psychiatric inpatient treatment from Medicine stand point. Disposition Plan: Home vs inpatient psych Total Time Spent with Patient (Minutes): 20 minutes History Interval history: No acute events overnight. Patient without complaints at this time. Hospitalist Physical - Physical exam Narrative exam: GENERAL: Well-developed well-nourished. Sitting in bed reading, no acute distress. CHEST/LUNGS: CTAB on room air HEART/CARDIOVASCULAR: RRR. No murmur, rubs or gallops appreciated. ABDOMEN: +BS. NT/ND. EXTREMITIES: No cyanosis, clubbing or edema. PSYCH: Paranoid thoughts. No SI/HI. - Constitutional Vitals: Temp Pulse Resp BP Pulse Ox 97.3 F L 89 19 123/80 97 07/12/21 04:48 07/12/21 04:48 07/12/21 04:48 07/12/21 04:48 07/12/21 04:48 General appearance: Present: no acute distress, other (tearful) HEART Score - HEART Score EKG: Non-specific Age: < 45 Risk factors: 1-2 risk factors Troponin: Troponin T < 0.010 ng/mL (0.00-0.029) 07/09/21 08:27 Troponin: < normal limit Results - Labs CBC & Chem 7: 07/10/21 05:02 07/10/21 05:02 Labs: Laboratory Last Values WBC 8.9 K/mm3 (4.5-11.0) 07/10/21 05:02 RBC 4.40 M/mm3 (3.65-5.03) 07/10/21 05:02 Hgb 12.5 gm/dl (10.1-14.3) 07/10/21 05:02 Hct 37.8 % (30.3-42.9) 07/10/21 05:02 MCV 86 fl (79-97) 07/10/21 05:02 MCH 28 pg (28-32) 07/10/21 05:02 MCHC 33 % (30-34) 07/10/21 05:02 RDW 14.0 % (13.2-15.2) 07/10/21 05:02 Plt Count 348 K/mm3 (140-440) 07/10/21 05:02 Lymph % (Auto) 19.9 % (13.4-35.0) 07/10/21 05:02 [place] % (Auto) 5.1 % (0.0-7.3) 07/10/21 05:02 Eos % (Auto) 1.5 % (0.0-4.3) 07/10/21 05:02 Baso % (Auto) 0.6 % (0.0-1.8) 07/10/21 05:02 Lymph # (Auto) 1.8 K/mm3 (1.2-5.4) 07/10/21 05:02 [place] # (Auto) 0.5 K/mm3 (0.0-0.8) 07/10/21 05:02 Eos # (Auto) 0.1 K/mm3 (0.0-0.4) 07/10/21 05:02 Baso # (Auto) 0.1 K/mm3 (0.0-0.1) 07/10/21 05:02 Seg Neutrophils % 72.9 % (40.0-70.0) H 07/10/21 05:02 Seg Neutrophils # 6.5 K/mm3 (1.8-7.7) 07/10/21 05:02 PT 13.9 Sec. (12.2-14.9) 07/10/21 05:02 INR 0.96 (0.87-1.13) 07/10/21 05:02 Sodium 138 mmol/L (137-145) 07/10/21 05:02 Potassium 3.6 mmol/L (3.6-5.0) D 07/10/21 05:02 Chloride 101.5 mmol/L (98-107) 07/10/21 05:02 Carbon Dioxide 25 mmol/L (22-30) 07/10/21 05:02 Anion Gap 15 mmol/L 07/10/21 05:02 BUN 8 mg/dL (7-17) 07/10/21 05:02 Creatinine 0.7 mg/dL (0.6-1.2) 07/10/21 05:02 Estimated GFR > 60 ml/min 07/10/21 05:02 BUN/Creatinine Ratio 11 % 07/10/21 05:02 Glucose 128 mg/dL (65-100) H 07/10/21 05:02 POC Glucose 120 mg/dL (70-105) H 07/11/21 22:07 Calcium 8.8 mg/dL (8.4-10.2) 07/10/21 05:02 Total Creatine Kinase 529 units/L (30-135) H 07/09/21 01:22 CK-MB (CK-2) 2.7 ng/mL (0.0-4.0) 07/09/21 01:22 CK-MB (CK-2) Rel Index 0.5 (0-4) 07/09/21 01:22 Troponin T < 0.010 ng/mL (0.00-0.029) 07/09/21 08:27 Triglycerides 70 mg/dL (2-149) 07/10/21 05:02 Cholesterol 135 mg/dL (50-199) 07/10/21 05:02 LDL Cholesterol Direct 85 mg/dL (50-130) 07/10/21 05:02 HDL Cholesterol 39 mg/dL (40-59) L 07/10/21 05:02 Cholesterol/HDL Ratio 3.46 % 07/10/21 05:02 HCG, Qual Negative (Negative) 07/09/21 01:22 Urine Color Straw (Yellow) 07/09/21 01:07 Urine Turbidity Clear (Clear) 07/09/21 01:07 Urine pH 6.0 (5.0-7.0) 07/09/21 01:07 Ur Specific [place] 1.008 (1.003-1.030) 07/09/21 01:07 Urine Protein <15 mg/dl mg/dL (Negative) 07/09/21 01:07 Urine Glucose (UA) Neg mg/dL (Negative) 07/09/21 01:07 Urine Ketones Neg mg/dL (Negative) 07/09/21 01:07 Urine Blood Sm (Negative) 07/09/21 01:07 Urine Nitrite Neg (Negative) 07/09/21 01:07 Urine Bilirubin Neg (Negative) 07/09/21 01:07 Urine Urobilinogen < 2.0 mg/dL (<2.0) 07/09/21 01:07 Ur Leukocyte Esterase Neg (Negative) 07/09/21 01:07 Urine WBC (Auto) < 1.0 /HPF (0.0-6.0) 07/09/21 01:07 Urine RBC (Auto) 2.0 /HPF (0.0-6.0) 07/09/21 01:07 U Epithel Cells (Auto) 2.0 /HPF (0-13.0) 07/09/21 01:07 Salicylates 1.5 mg/dL (2.8-20.0) L 07/09/21 01:22 Urine Opiates Screen Presumptive negative 07/09/21 01:07 Urine Methadone Screen Presumptive negative 07/09/21 01:07 Acetaminophen 5.0 ug/mL (10.0-30.0) L 07/09/21 01:22 Ur Barbiturates Screen Presumptive negative 07/09/21 01:07 Ur Phencyclidine Scrn Presumptive negative 07/09/21 01:07 Ur Amphetamines Screen Presumptive negative 07/09/21 01:07 U Benzodiazepines Scrn Presumptive negative 07/09/21 01:07 Urine Cocaine Screen Presumptive negative 07/09/21 01:07 U Marijuana (THC) Screen Presumptive negative 07/09/21 01:07 Drugs of Abuse Note Disclamer 07/09/21 01:07 Plasma/Serum Alcohol < 0.01 % (0-0.07) 07/09/21 01:22 Cyr/IV: Voiding Method Toilet Active Medications - Current Medications Current Medications: Generic Name Dose Route Start Last Admin Trade Name Freq PRN Reason Stop Dose Admin Acetaminophen 650 mg 07/09/21 02:14 07/11/21 23:03 Acetaminophen 325 Mg Tab PO 650 mg Q4H PRN Administration Pain MILD(1-3)/Fever >100.5/REZA Aspirin 325 mg 07/10/21 10:00 07/11/21 10:55 Aspirin Ec 325 Mg Tab PO 325 mg QDAY CLAUDINE Administration Hydroxyzine Pamoate 25 mg 07/09/21 10:00 07/11/21 21:32 Hydroxyzine Pamoate 25 Mg Cap PO 25 mg BID CLAUDINE Administration Sodium Chloride 1,000 mls @ 75 mls/hr 07/09/21 02:15 07/11/21 19:32 Nacl 0.9% 1000 Ml IV 75 mls/hr DIRECT CLAUDINE Administration Lisinopril 40 mg 10/13/21 18:00 07/11/21 10:55 Lisinopril 40 Mg Tab PO 40 mg QDAY CLAUDINE Administration Magnesium Hydroxide 30 ml 07/09/21 02:14 Magnesium Hydroxide (Mom) Oral Liqd Udc PO Q4H PRN Constipation Morphine Sulfate 2 mg 07/09/21 02:14 Morphine 2 Mg/1 Ml Inj IV Q4H PRN Pain, Moderate (4-6) Morphine Sulfate 4 mg 07/09/21 02:14 Morphine 4 Mg/1 Ml Inj IV Q4H PRN Pain , Severe (7-10) Morphine Sulfate 2 mg 07/09/21 02:14 Morphine 4 Mg/1 Ml Inj IV Q5MIN PRN Chest Pain unrelieved by NTG Nitroglycerin 0.4 mg 07/09/21 02:14 Nitroglycerin 0.4 Mg Tab Subl SL Q5M PRN Chest Pain Olanzapine 10 mg 07/11/21 10:00 07/11/21 10:55 Olanzapine 10 Mg Tab PO 10 mg QDAY CLAUDINE Administration Ondansetron HCl 4 mg 07/09/21 02:14 Ondansetron 4 Mg/2 Ml Inj IV Q8H PRN Nausea And Vomiting Sertraline HCl 25 mg 07/09/21 10:00 07/11/21 10:55 Sertraline 25 Mg Tab PO 25 mg QDAY CLAUDINE Administration Sodium Chloride 10 ml 07/09/21 10:00 07/11/21 21:32 Sodium Chloride 0.9% 10 Ml Flush Syringe IV 10 ml BID CLAUDINE Administration Sodium Chloride 10 ml 07/09/21 02:14 Sodium Chloride 0.9% 10 Ml Flush Syringe IV PRN PRN LINE FLUSH Tramadol HCl 50 mg 07/09/21 02:14 Tramadol 50 Mg Tab PO Q6H PRN Pain, Moderate (4-6)
[2021-07-12] MEDS: ASPIRIN EC 325 MG TAB PO SCH (10:43)
[2021-07-12] MEDS: SERTRALINE 25 MG TAB PO SCH (10:43)
[2021-07-12] MEDS: LISINOPRIL 40 MG TAB PO SCH (10:44)
[2021-07-12] MEDS: hydrOXYzine PAMOATE 25 MG CAP PO SCH ×2 (10:44→21:17)
--- NOTE | 2021-07-12 12:51 | Progress Note ---
Subjective - Reason for Consult Consult date: 07/12/21 Reason for consult: mental health evaluation - Chief Complaint Chief complaint: The patient was seen today, she is calm and oriented. The patient reports doing well. She reports sleep and appetite as good. She denies suicidal/homicidal ideation and denies hallucinations. REVIEW OF SYSTEMS Constitutional: Negative for weight loss ENT: Negative for stridor Respiratory: Negative for cough or hemoptysis All other systems reviewed and are negative MENTAL STATUS EXAMINATION General Appearance and Behavior: Age appropriate, good hygiene, wearing ap propriate clothes, good eye contact, calm and cooperative Cooperation: Participating/engaged Psychomotor Behavior: Psychomotor normal Mood: okay Affect and affective range: Congruent to stated mood Thought Process: Goal directed Thought Content: Not suicidal Speech: normal tone and pace Suicidal Ideation: Denies Homicidal Ideation: Denies Hallucinations: Denies Delusions: None Impulse Control: Limited Insight and Judgment: Limited Memory: Limited Attention: divided Orientation: Alert and oriented Assessment and Plan (1) Delusional Disorder Treatment Plan DC 1013 Continue Olanzapine 10mg po daily Continue Vistaril 25mg po BID Sitter: per primary Medical: per primary Disposition: Recommend acute psychiatric inpatient treatment will follow. Thanks Case staffed with Dr. Tariq Mental Status Exam - Vital signs Last Vital Signs Temp 98.0 F 07/12/21 11:34 Pulse 104 H 07/12/21 11:34 Resp 18 07/12/21 11:34 BP 152/100 07/12/21 11:34 Pulse Ox 97 07/12/21 11:34
[2021-07-13 09:51] VITALS: BP 162/100
[2021-07-13] MEDS: LISINOPRIL 40 MG TAB PO SCH (10:28)
[2021-07-13] MEDS: SERTRALINE 25 MG TAB PO SCH (10:28)
[2021-07-13] MEDS: ASPIRIN EC 325 MG TAB PO SCH (10:28)
[2021-07-13] MEDS: hydrOXYzine PAMOATE 25 MG CAP PO SCH (10:28)
--- NOTE | 2021-07-13 10:33 | Discharge Summary ---
Providers - Providers Date of Admission: 07/09/21 18:02 Date of discharge: 07/13/21 Attending physician: RIGO VAUGHAN MD 07/09/21 Consult to Cardiac Rehabilitation [CONS] Routine Reason For Exam: Phase I Primary care physician: YFN CALL Hospitalization Reason for admission: Suicidal ideation and chest pain Condition: Fair Hospital course: 41-year-old female who presented with complaints of chest pain. Also having suicidal ideation and concern about being watched. Psychiatry called to evalua te patient and was placed on 1013. Work-up for chest pain was unremarkable including echocardiogram showing normal ejection fraction. Patient was deemed medically stable for inpatient psychiatric treatment. Psychiatry team patient okay for safe discharge home and 1013 was discontinued. Disposition: HOME / SELF CARE / HOMELESS Final Discharge Diagnosis (Prints w/discharge instructions): Delusional disorder. Atypical chest pain Time spent for discharge: 20 minutes Core Measure Documentation - Palliative Care Palliative Care/ Comfort Measures: Not Applicable - Core Measures Any of the following diagnoses?: none Exam - Physical Exam Narrative exam: GENERAL: Well-developed well-nourished. Sitting in bed reading, no acute distress. CHEST/LUNGS: CTAB on room air HEART/CARDIOVASCULAR: RRR. No murmur, rubs or gallops appreciated. ABDOMEN: +BS. NT/ND. EXTREMITIES: No cyanosis, clubbing or edema. PSYCH: Paranoid thoughts. No SI/HI. - Constitutional Vitals: Temp Pulse Resp BP Pulse Ox 97.6 F 79 18 162/100 97 07/13/21 03:32 07/13/21 09:51 07/13/21 03:32 07/13/21 09:51 07/13/21 03:32 Plan Care Plan Goals: Please follow-up with primary care. Please start taking medications prescribed to you. Assessment: Chest pain resolved. TTE negative. Patient was placed on 1013 by psychiatry. 1013 was discontinued and patient was deemed fit for discharge home. Follow up with: YFN CALL MD [Primary Care Provider] - 3-5 Days Prescriptions: OLANZapine [Olanzapine] 10 mg PO DAILY 30 Days #30 tablet Sertraline [Zoloft] 25 mg PO QDAY 30 Days #30 tab
--- NOTE | 2021-07-16 14:17 | Electrocardiograph Report ---
[facility] Test Date: 2021-07-09 Test Time: 02:29:35 Pat Name: [facility] Department: Room: A459 Gender: F Online Marketing Strategist: : 1980 Requested By: TEENA LIRIANO Order Number: [id number] Reading MD: Cele Arizmendi Measurements Intervals [place] Rate: 95 P: 70 GA: 178 QRS: 21 QRSD: 94 T: 53 QT: 395 QTc: 495 Interpretive Statements Sinus rhythm Abnrm R prog, consider ASMI or lead placement No previous ECG available for comparison Electronically Signed On 07-16-2021 14:17:41 EDT by Cele Arizmendi
--- NOTE | 2021-07-16 14:35 | Electrocardiograph Report ---
[facility] Test Date: 2021-07-10 Test Time: 07:36:13 Pat Name: [facility] Department: Room: A459 Gender: F [employer] Preparer: ANGELA : 1980 Requested By: ANU MELENDEZ Order Number: [id number] Reading MD: Cele Arizmendi Measurements Intervals [place] Rate: 89 P: 69 MO: 170 QRS: -2 QRSD: 93 T: 48 QT: 405 QTc: 493 Interpretive Statements Sinus rhythm Compared to ECG 07/09/2021 02:29:35 No significant change Electronically Signed On 07-16-2021 14:35:19 EDT by Cele Arizmendi
== END 2021-07-13 14:27 | disposition home or self-care (01) | DRG 313 ==
LOC: ED 21:54 → 4A 07-09 02:14 → OBSVTOIN 07-09 18:02 → 4A 07-09 19:27
PROVIDERS: ADMIT Internal Medicine Geriatric Medicine; ATTEND Student in an Organized Health Care Education/Training Program
DX: R07.89 Other chest pain (principal); R45.851 Suicidal ideations; F22 Delusional disorders; I10 Essential (primary) hypertension; E11.9 Type 2 diabetes mellitus without complications; F41.9 Anxiety disorder, unspecified; Z79.899 Other long term (current) drug therapy
CPT/HCPCS: 36415; 71045; 80048; 80061; 80307; 80320; 81001; 82550; 82553; 82962; 84484; 84703; 85025; 85610; 93005; 93306; G0378; G0480; J2405; J3010; J7030; Q0177